=== PATIENT | female | born 1990 | race Caucasian/White ===

== ENCOUNTER 2021-12-27 18:52 | Inpatient (IN) | payer BC ==
[~2021-12-27 18:52] MED LIST: Ropivacaine 0.2% PF 2 MG/ML 20 ML SDV ONE
[2021-12-27] MEDS ORDERED: Lidocaine 1% 50 ML MDV INJECT PRN (19:23)
[2021-12-27] MEDS ORDERED: Ondansetron 4 MG/2 ML SDV IVPUSH PRN (19:23)
[2021-12-27] MEDS ORDERED: Acetaminophen 325 MG Tab PO PRN (19:23)
[2021-12-27] MEDS ORDERED: Nalbuphine HCl 10 MG/ 1ML Amp IVPUSH PRN (19:23)
[2021-12-27] MEDS ORDERED: Calcium Carbonate 500 MG Tab.Chew PO PRN (19:23)
[2021-12-27] MEDS ORDERED: Oxytocin/Lactated Ringers 10 UNIT/1,000 ML BAG IV SCH ×2 (19:30)
[2021-12-27] MEDS ORDERED: Lactated Ringers 1,000 ML IV SCH (19:30)
[2021-12-27 20:13] LABS: ESTIMATED GFR 88 mL/min (>60)
[2021-12-27] MEDS: Sertraline 50 MG Tab PO SCH (21:47)
[2021-12-27] MEDS: QUEtiapine 100 MG Tab PO SCH (21:47)
[2021-12-28] MEDS ORDERED: fentaNYL 100 MCG/2 ML SDV EPIDUR PRN (02:47)
[2021-12-28] MEDS ORDERED: diphenhydrAMINE 50 MG/ML SDV IVPUSH PRN (02:47)
[2021-12-28] MEDS ORDERED: ePHEDrine 50 MG/ML SDV IVPUSH PRN (02:47)
[2021-12-28] MEDS ORDERED: Bupivacaine/fentaNYL/NS 100 ML Bag EPIDUR PRN (02:47)
[2021-12-28] MEDS ORDERED: Benzocaine/Menthol 20%-0.5% Spray 78 GM Cannister TOP PRN (05:15)
[2021-12-28] MEDS ORDERED: Oxytocin/Lactated Ringers 10 UNIT/1,000 ML BAG IV SCH (05:15)
[2021-12-28] MEDS ORDERED: Hydrocortisone Acetate 25 MG Supp RECTAL PRN (05:15)
[2021-12-28] MEDS ORDERED: Witch Hazel Medicated Pads 40/Jar TOP PRN (05:15)
[2021-12-28] MEDS: Ibuprofen 600 MG Tab PO PRN ×2 (09:39→16:47)
[2021-12-28] MEDS: Docusate Sodium 100 MG Cap PO PRN (09:39)
[2021-12-28] MEDS: Prenatal Multivitamin with Calcium/Folic Acid/Iron Tab PO SCH (09:39)
[2021-12-28] MEDS: Acetaminophen 325 MG Tab PO PRN (19:54)
[2021-12-28] MEDS: QUEtiapine 100 MG Tab PO SCH (21:17)
[2021-12-28] MEDS: Sertraline 50 MG Tab PO SCH (21:17)
[2021-12-29] MEDS: Ibuprofen 600 MG Tab PO PRN ×2 (02:30→08:37)
[2021-12-29] MEDS: Acetaminophen 325 MG Tab PO PRN (02:31)
[2021-12-29] MEDS: Prenatal Multivitamin with Calcium/Folic Acid/Iron Tab PO SCH (08:36)
[2021-12-29] MEDS: Docusate Sodium 100 MG Cap PO PRN (08:36)
== END 2021-12-29 11:40 | disposition home or self-care (01) | DRG 560 ==
LOC: JD.OBCHECK 18:52 → JD.OB 18:55 → JD.OBCHECK 19:22 → JD.OB 19:23 → OBSVTOIN 19:23 → INTOOBSV 19:23 → UNDOADMOB 19:23 → JD.OB 12-28 04:45 → UNDODISIN 12-29 11:40
PROVIDERS: ADMIT Obstetrics & Gynecology; ATTEND Obstetrics & Gynecology
PROC: 10E0XZZ Delivery of Products of Conception, External Approach (ICD-10-PCS; principal; 2021-12-27)
PROC: 10907ZC Drainage of Amniotic Fluid, Therapeutic from Products of Conception, Via Natural or Artificial Opening (ICD-10-PCS; 2021-12-27)
PROC: 0HQ9XZZ Repair Perineum Skin, External Approach (ICD-10-PCS; 2021-12-27)
PROC: 3E0R3BZ Introduction of Anesthetic Agent into Spinal Canal, Percutaneous Approach (ICD-10-PCS; 2021-12-27)
PROC: 00HU33Z Insertion of Infusion Device into Spinal Canal, Percutaneous Approach (ICD-10-PCS; 2021-12-27)
DX: O13.4 Gestational [pregnancy-induced] hypertension without significant proteinuria, complicating childbirth (principal); Z3A.37 37 weeks gestation of pregnancy; Z37.0 Single live birth; O99.344 Other mental disorders complicating childbirth; F41.9 Anxiety disorder, unspecified; O99.62 Diseases of the digestive system complicating childbirth; K51.90 Ulcerative colitis, unspecified, without complications; O99.334 Smoking (tobacco) complicating childbirth; F17.210 Nicotine dependence, cigarettes, uncomplicated; O69.81X0 Labor and delivery complicated by cord around neck, without compression, not applicable or unspecified; O70.0 First degree perineal laceration during delivery
CPT/HCPCS: 01967; 36415; 51702; 59025; 59409; 82565; 82570; 83615; 84156; 84450; 84460; 84520; 84550; 85025; 86592; A9270-GY; J2405; J2590; J2795; J7120